=== PATIENT | male | born 1980 | race Caucasian/White ===

== ENCOUNTER 2016-10-08 13:04 | Emergency (ER) | payer SELFPAY ==
[~2016-10-08] VITALS: Ht 180.3 cm; Wt 81.6 kg
[~2016-10-08 13:04] MED LIST: ALBUTEROL0.09 MG/A2 INH; AMOXICILLIN500 MG PO; BACTRIM DS 8001 TA1 PO; CYCLOBENZAPRINE10 MG PO; HYDROCODONE BIT1 T11 PO; IBU800 MG PO; KEFLEX500 M1 PO; TESSALON PERLE100 M1 PO; ULTRAM50 MG PO; ZITHROMAX Z PA250 MG PO
[2016-10-08] MEDS ORDERED: NAPROSYN500 MG PO (13:28)
[2016-10-08] MEDS ORDERED: 'PARAFON FORTE500 M1 PO (13:28)
== END 2016-10-08 13:34 | disposition home or self-care (01) ==
LOC: ED 13:04
DX: M54.41 Lumbago with sciatica, right side (principal); F17.200 Nicotine dependence, unspecified, uncomplicated

== ENCOUNTER → 2017-06-08 | Outpatient (CLI) | payer OTHER ==
[~2017-06-08] MED LIST changes: +'PARAFON FORTE500 M1 PO; +NAPROSYN500 MG PO
== END | disposition home or self-care (01) ==
LOC: ORTHO 01:46
DX: M25.531 Pain in right wrist (principal); M25.532 Pain in left wrist

== ENCOUNTER 2019-12-25 22:59 | Emergency (ER) | payer SELFPAY ==
[~2019-12-25] VITALS: Wt 77.1 kg
[2019-12-26] MEDS ORDERED: CEFADROXIL500 M1 PO (00:17)
== END 2019-12-26 01:05 | disposition home or self-care (01) ==
LOC: ED 22:59
DX: S91.112A Laceration without foreign body of left great toe without damage to nail, initial encounter (principal); W45.8XXA Other foreign body or object entering through skin, initial encounter; Y93.89 Activity, other specified; Y92.89 Other specified places as the place of occurrence of the external cause; Y99.9 Unspecified external cause status

== ENCOUNTER → 2021-09-08 | Outpatient (CLI) | payer OTHER ==
[~2021-09-08] MED LIST changes: +CEFADROXIL500 M1 PO
[2021-09-08 11:13] LABS: BASO # 0.1 10*3/uL (0.0-0.1); EOS # 0.3 10*3/uL (0.0-0.4); EOS % 3.1 % (1.0-4.0); HEMATOCRIT 46.7 % (42.0-52.0); LYMPH # 2.2 10*3/uL (1.3-4.4); LYMPH % 27.8 % (27.0-41.0); MEAN CELL VOLUME 89.5 fl (80.0-94.0); MEAN CORPUSCULAR HGB 30.1 pg (27.0-31.0); MEAN CORPUSCULAR HGB CONC 33.6 g/dl (33.0-37.0); MEAN PLATELET VOLUME 9.4 fl (9.6-12.3); MONO # 0.5 10*3/uL (0.1-1.0); MONO % 6.6 % (3.0-9.0); NEUT # 4.9 10*3/uL (2.3-7.9); NEUT % 61.2 % (47.0-73.0); PLATELET COUNT AUTOMATED 304 10*3/uL (130-400); RED BLOOD COUNT 5.22 10*6/uL (4.50-5.90); RED CELL DISTRI WIDTH 13.1 % (0-14.5); RETICULOCYTE % 0.96 % (0.50-2.50)
[2021-09-08 11:42] LABS: BUN 11 mg/dl (7-24); CHLORIDE 109 mmol/L (98-107); CHOLESTEROL 155 mg/dL (<200); CREATININE 0.87 mg/dL (0.70-1.30); GAMMA GLUTAMYL TRANSPEPTIDASE 5 U/L (15-85); IRON 68 ug/dL (65-175); POTASSIUM 4.3 mmol/L (3.5-5.1); SGOT/AST 11 IU/L (3-35); SGPT/ALT 28 U/L (12-78); SODIUM 139 mmol/L (136-145); TOTAL PROTEIN 6.9 gm/dL (6.4-8.2); TRIGLYCERIDES 47 mg/dl (<150); URIC ACID 3.1 mg/dL (3.5-7.2)
[2021-09-08 11:43] LABS: BILIRUBIN Negative (Negative); BLOOD Negative (Negative); CLARITY Clear (Clear); COLOR Yellow (Yellow); GLUCOSE Negative (Negative); KETONE Negative (Negative); LEUKO ESTERASE Negative (Negative); NITRITE Negative (Negative); SPECIFIC GRAVITY <= 1.005 (1.001-1.030); UROBILINOGEN 0.2 E.U./dl (0.0-1.0)
[2021-09-08 11:51] LABS: ALKALINE PHOSPHATASE 44 U/L (45-117); LDL CHOLESTEROL 100 mg/dL (9-159); TOTAL IRON BINDING CAPACITY 308 ug/dl (250-450)
[2021-09-08 15:08] LABS: VITAMIN D, 25-HYDROXY 31.8 ng/mL (30-100)
[2021-09-08 15:09] LABS: FERRITIN 35.9 ng/mL (22.0-322.0)
[2021-09-08 17:00] LABS: EPITHELIAL CELLS 0-2
[2021-09-09 05:05] LABS: RHEUMATOID FACTOR 10.4 IU/mL (<14.0)
[2021-09-09 13:05] LABS: ANTI-DSDNA ANTIBODIES <1 IU/mL (0-9)
== END | disposition home or self-care (01) ==
LOC: LAB 10:41
PROVIDERS: ATTEND Family Medicine
DX: M79.604 Pain in right leg (principal); R60.0 Localized edema; R79.89 Other specified abnormal findings of blood chemistry; R53.83 Other fatigue; R74.8 Abnormal levels of other serum enzymes; E78.5 Hyperlipidemia, unspecified; E55.9 Vitamin D deficiency, unspecified

== ENCOUNTER → 2022-04-26 | Outpatient (CLI) | payer OTHER | END | disposition home or self-care (01) | LOC: RAD 11:24 | PROVIDERS: ATTEND Chiropractor Orthopedic | DX: M16.11 Unilateral primary osteoarthritis, right hip (principal); M51.36 Other intervertebral disc degeneration, lumbar region; M48.061 Spinal stenosis, lumbar region without neurogenic claudication; M46.06 Spinal enthesopathy, lumbar region; M76.9 Unspecified enthesopathy, lower limb, excluding foot ==